=== PATIENT | female | born 1985 | race American Indian/Alaskan Native ===

== ENCOUNTER 2016-04-23 12:19 | Outpatient (CLI) | payer MEDICAID ==
[2016-04-23 13:12] VITALS: BP 112/61
--- NOTE | 2016-04-24 13:11 | Ultrasound Report ---
BIOPHYSICAL PROFILE: History: well-being, no movements Technique: Transabdominal ultrasound with Doppler interrogation. 2 - breathing movements 2 - movements 2 - posture and tone 2 - Qualitative amniotic fluid volume 8 - TOTAL SCORE OF POSSIBLE 8 Heart Rate (bpm) 134
== END 2016-04-23 14:24 | disposition home or self-care (01) ==
LOC: TRG 12:19
PROVIDERS: ATTEND Obstetrics & Gynecology
DX: O47.1 False labor at or after 37 completed weeks of gestation (principal); Z3A.37 37 weeks gestation of pregnancy
CPT/HCPCS: 59025; 76815; 76819

== ENCOUNTER 2016-05-02 05:10 | Inpatient (IN) | payer MEDICAID ==
[2016-05-02] MEDS ORDERED: LACTATED RINGERS 1,000 ML ONE ×2 (05:51→07:00)
[2016-05-02] MEDS ORDERED: LACTATED RINGERS 1,000 ML IV ONE (06:15)
[2016-05-02] MEDS ORDERED: BICITRA PO ONE (06:36)
[2016-05-02] MEDS ORDERED: PEPCID IV ONE (06:38)
[2016-05-02 06:44] LABS: Hematocrit 38.7 % (30.3-42.9); Hemoglobin 12.6 gm/dl (10.1-14.3); Mean Corpuscular HGB Conc 33 % (30-34); Mean Corpuscular Hemoglobin 29 pg (28-32); Mean Corpuscular Volume 88 fl (79-97); Platelet Count 178 K/mm3 (140-440); White Blood Count 7.8 K/mm3 (4.5-11.0)
[2016-05-02] MEDS ORDERED: PITOCin/NS 20 UNIT/1000ML DRIP 20 UNITS/1,000 ML BAG IV SCH ×2 (07:00→11:00)
[2016-05-02] MEDS ORDERED: REGLAN IV NR ×2 (07:00→08:00)
[2016-05-02] MEDS ORDERED: ANCEF/STERILE WATER 2 GM/20 ML IV NR (07:00)
--- NOTE | 2016-05-02 07:40 | History and Physical Report ---
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 Per patient, course has been unremarkable. She has a history of delivery at 26 weeks via ?classical C-S due to preeclampsia with subsequent demise of the at less than 1-month-old. 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 denies: cancer, chlamydia, gonorrhea, hepatitis B, hepatitis C, HIV, syphilis Social history: single, full code. denies: smoking, alcohol abuse, prescription drug abuse, IV drug use - Obstetrical History Expected Date of Delivery: 05/09/16 Actual Gestation: 39 Week(s) 0 Day(s) : 3 Para: 1 Hx # Term Pregnancies: 0 Number of Pregnancies: 1 Number of Living Children: 0 Medications and Allergies Allergies Allergy/AdvReac Type Severity Reaction Status Date / Time No Known Allergies Allergy Verified 05/02/16 06:00 Home Medications Medication Instructions Recorded Confirmed Last Taken Type Tablet 1 tab PO DAILY 05/02/16 05/02/16 05/01/16 20:30 History Active Meds: Active Medications Cefazolin Sodium (Ancef/Sterile Water 2 Gm/20 Ml) 2 gm IV PREOP NR Stop: 05/02/16 23:59 Oxytocin/Sodium Chloride (Pitocin/Ns 20 Unit/1000ml Drip) 20 units in 1,000 mls @ 0 mls/hr IV DIRECT MICHELLE PRN Reason: As Directed Review of Systems Constitutional: no fever, no sweats Cardiovascular: no chest pain, no orthopnea, no syncope, no lightheadedness, no shortness of breath, no dyspnea on exertion, no paroxysmal nocturnal dyspnea, no high blood pressure Respiratory: no cough, no shortness of breath, no dyspnea on exertion Gastrointestinal: no abdominal pain, no nausea, no vomiting Genitourinary: no vaginal bleeding, no vaginal discharge, no leakage of fluid, no pelvic pain - Vital Signs Vital signs: Vital Signs Pulse Pulse Ox 85 98 05/02/16 05:59 05/02/16 05:59 Temp Pulse Resp BP Pulse Ox 98.1 F 90 16 124/75 82 L 05/02/16 07:32 05/02/16 07:13 05/02/16 07:32 05/02/16 06:01 05/02/16 07:13 - Physical Exam Cardiovascular: Regular rate, Normal S1, Normal S2 Lungs: Positive: Clear to auscultation, Normal air movement Abdomen: Positive: normal appearance, soft. Negative: distention, tenderness, guarding, rigidity Genitourinary (Female): Positive: normal external genitalia Uterus: Positive: enlarged (EFW difficult due to body habitus). Negative: tender Extremities: Positive: normal - Obstetrical FHR: category 1 Results Result Diagrams: 05/02/16 06:00 All other labs normal. Assessment and Plan A: 31-year-old at 39 weeks presents for repeat -Cat 1 tracing Issues -Morbidly Obese -History of after 26 week delivery P: -Obtain routine labs -Has been consented -Proceed to the OR once available - Patient Problems (1) 39 weeks gestation of Current Visit: Yes Status: Acute (2) History of delivery affecting Current Visit: Yes Status: Acute (3) Morbid obesity with BMI of 50.0-59.9, adult Current Visit: Yes Status: Acute
[2016-05-02] MEDS ORDERED: LACTATED RINGERS 1,000 ML IV SCH (08:00)
[2016-05-02] MEDS ORDERED: ANCEF/STERILE WATER 2 GM/20 ML 2 GM/20 ML SYRINGE IV NR (08:00)
--- NOTE | 2016-05-02 08:00 | Anesthesia Consultation ---
Anesthesia Consult and Med Hx Date of service: 05/02/16 - Airway Anesthetic Teeth Evaluation: Good ROM Head & Neck: Adequate Mental/Hyoid Distance: Adequate Mallampati Class: Class II Intubation Access Assessment: Probably Good - Pulmonary Exam CTA: Yes - Cardiac Exam Cardiac Exam: RRR - Pre-Operative Health Status ASA Pre-Surgery Classification: ASA3 Proposed Anesthetic Plan: Epidural, Spinal - Pulmonary Hx Asthma: No COPD: No Hx Pneumonia: No - Cardiovascular System Hx Hypertension: No - Central Nervous System Hx Seizures: No Hx Psychiatric Problems: No - Endocrine Hx Renal Disease: No Hx End Stage Renal Disease: No Hx Hypothyroidism: No Hx Hyperthyroidism: No - Hematic Hx Anemia: No Hx Sickle Cell Disease: No - Other Systems Hx Alcohol Use: No Hx Obesity: Yes (morbid obesity)
--- NOTE | 2016-05-02 08:01 | Anesthesia Day of Surgery ---
Anesthesia Day of Surgery - Day of Surgery Patient Examined: Yes Patient H&P Reviewed: Yes Patient is NPO: Yes (FSP)
[2016-05-02] MEDS ORDERED: XYLOCAINE MPF 2% ONE (08:20)
[2016-05-02] MEDS ORDERED: ZOFRAN ONE (08:20)
[2016-05-02] MEDS ORDERED: ePHEDrine SULFATE ONE (08:20)
[2016-05-02] MEDS ORDERED: ANCEF ONE (08:20)
[2016-05-02] MEDS ORDERED: EMLA TP PRN (08:30)
[2016-05-02] MEDS ORDERED: NACL 0.9% 500 ML 500 ML IV ONE (08:33)
[2016-05-02] MEDS ORDERED: NACL 0.9% IR ONE (09:20)
[2016-05-02] MEDS ORDERED: WATER FOR IRRIG STERILE IR ONE (09:20)
--- NOTE | 2016-05-02 10:35 | Operative Report ---
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 14 oz. or 3564 grams, Apgars 7 and 9, morbidly obese with significant subcutaneous fat, gulf ball sized fibroid noted at the left hysterotomy incision, adhesions of omentum to anterior abdominal wall and uterus otherwise normal uterus tubes and ovaries bilaterally DESCRIPTION OF PROCEDURE: She was taken to the operating room where she was prepped and draped in a sterile fashion, she was placed in the dorsal supine position. Pfannenstiel incision was performed through her prior incisional scar which was carried through to underlying rectus fascia which was on the midline. The fascial incision was extended laterally with use of Iqbal scissors, the anterior leaf was then grasped with Kochers forceps elevated dissected sharply and bluntly off the underlying rectus in a similar fashion inferior leaf was grasped elevated dissected sharply and bluntly off the underlying rectus. The rectus was in the midline, with significant omental adhesions noted. Adhesiolysis was then performed until good visualization of uterus and bladder was noted. A bladder blade was placed in the patient's pelvic cavity; bladder flap could not be created. A hysterotomy incision was then performed in the lower segment with clear amniotic fluid noted, hysterotomy incision was extended laterally with the use of fingers manually. in cephalic presentation was delivered in the usual manner; cord was clamped and cut infant was handed over to waiting nursery staff. The placenta was then delivered manually intact, the uterus was exteriorized cleared of all clots and debris. We then noticed the large golf ball size fibroid on the left hysterotomy. There was no way to close the incision without performing a myomectomy. Patient was informed of plan of care. The fibroid was grasped and then gently teased out of the shell with bovie used the break up adhesions. Fibroids sent to pathology. Fibroid bed was then closed with interrupted figure of 8 stitches using 0 Vicryl. Hysterotomy incision was then closed in a running locked fashion with 0 Vicryl on a CTX; using the same suture was imbricate the initial layer. Interrupted [id number] stitches were used to obtain hemostasis. Uterus was then returned to the patient's pelvic cavity; peritoneal edges were grasped with hemostats and Sangeeta's elevated copiously irrigation was used to clear the gutters of all clots and debris. Tercel hemostatic agent was then applied to the hysterotomy incision as a means to prevent future bleeding, Interceed was then applied into the pelvic cavity as a means to prevent future adhesions. The peritoneal layer was then closed in a running fashion with 3-0 Vicryl and the rectus was reapproximated with a single [id number] stitch. The fascia was closed in a running fashion with 0 Vicryl and tied in the opposite side. The subcutaneous layer was irrigated and then reapproximated with interrupted figure -of-eight stitches. The skin was closed in a subcuticular manner with 4-0 Vicryl. She tolerated the procedure well lap and instrument counts were correct 2 she did receive 3 g of Ancef prior to incision she is transferred to PACU in stable condition thank you.
[2016-05-02] MEDS ORDERED: LANSINOH TP PRN (11:00)
[2016-05-02] MEDS ORDERED: SODIUM CHLORIDE FLUSH SYRINGE 10 ML IV PRN (11:00)
[2016-05-02] MEDS ORDERED: NARCAN 0.4 MG/1 ML IV PRN (11:00)
--- NOTE | 2016-05-02 11:03 | Post Anesthesia Evaluation ---
- Post Anesthesia Evaluation Patient Participated: Yes Airway Patent: Yes Stable Respiratory Function: Yes Temp > 96.8F: Yes Pain Manageable: Yes Adequeate Hydration: Yes Anesthesia Complications: No Block Receding Appropriately: Yes
[2016-05-02] MEDS ORDERED: TUCKS PAD TP PRN (11:30)
[2016-05-02] MEDS ORDERED: TYLENOL PO PRN (11:30)
[2016-05-02] MEDS ORDERED: MYLICON PO PRN (11:30)
[2016-05-02] MEDS ORDERED: D5LR 1,000 ML IV SCH (11:30)
[2016-05-02] MEDS ORDERED: ZOFRAN IV PRN (11:30)
[2016-05-02] MEDS ORDERED: PERCOCET 5/325 PO PRN (11:30)
[2016-05-02] MEDS ORDERED: BENADRYL IV PRN (12:00)
[2016-05-02] MEDS ORDERED: TORADOL IV PRN (17:20)
[2016-05-02] MEDS: METHERGINE IM SCH (18:48)
[2016-05-02] MEDS ORDERED: METHERGINE IM SCH (19:00)
[2016-05-02] MEDS ORDERED: SENOKOT PO PRN (22:00)
[2016-05-02] MEDS ORDERED: ANUCORT-HC PR PRN (22:00)
[2016-05-02] MEDS ORDERED: MILK OF MAGNESIA PO PRN (22:00)
[2016-05-02 22:46] LABS: Hematocrit 36.1 % (30.3-42.9); Hemoglobin 11.6 gm/dl (10.1-14.3)
[2016-05-03] MEDS: METHERGINE IM SCH ×3 (03:17→19:32)
[2016-05-03] MEDS: MOTRIN PO PRN (08:20)
--- NOTE | 2016-05-03 09:24 | Progress Note ---
Assessment and Plan A: POD1 s/p LTCS Ambulating, eating and voiding well Pain well managed P: Continue routine post op care Plans for d/c tomorrow as pt tolerates Continue to ambulate as tolerated No plans for contraception at this time. 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 course has been unremarkable. She has a history of delivery at 26 weeks via ?classical C-S due to preeclampsia with subsequent demise of the infant at less than 1-month-old. Patient did not have preeclampsia with this . Patient reports: appetite normal, voiding normally, pain well controlled, ambulating normally, no flatus : doing well Objective - Vital Signs Latest vital signs: Vital Signs Temp Pulse Pulse Pulse Resp BP BP 05/03/16 05:05 99.1 F 91 H 20 106/59 05/03/16 01:32 98.7 F 91 H 18 103/51 05/02/16 21:50 98.7 F 86 18 107/60 05/02/16 16:20 98.3 F 84 20 100/60 05/02/16 12:20 97.5 F L 76 20 112/61 05/02/16 11:45 97.7 F 68 14 110/57 05/02/16 11:30 70 14 97/51 05/02/16 11:15 74 13 114/56 05/02/16 11:00 79 14 113/63 05/02/16 10:55 84 12 115/55 05/02/16 10:50 98.8 F 88 14 111/60 Pulse Ox 05/03/16 05:05 05/03/16 01:32 05/02/16 21:50 05/02/16 16:20 05/02/16 12:20 05/02/16 11:45 100 05/02/16 11:30 100 05/02/16 11:15 100 05/02/16 11:00 99 05/02/16 10:55 99 05/02/16 10:50 99 Intake and Output 05/02/16 05/03/16 05/03/16 22:59 06:59 14:59 Intake Total 740 1320 Output Total 400 900 Balance 340 420 Intake: IV 500 1000 D5lr 1,000 ml @ 125 mls/ 125 hr IV DIRECT MICHELLE Rx#: [id number] PITOCin/NS 20 UNIT/1000ML 500 875 DRIP 20 units In 1,000 ml @ As Directed IV DIRECT [facility] Rx#:[id number] Oral 240 Intake, Free Water 320 Output: Urine 400 900 Indwelling Catheter 400 900 Other: Total, Intake Amount 240 Total, Output Amount 400 900 - Exam Cardiovascular: Present: Normal S1 Lungs: Present: Normal air movement Vulva: both: normal (Scant lochia) Uterus: Present: firm, fundal height below umbilicus Deep Tendon Reflex Grade: Normal +2 Incision: Present: normal, dry, intact, dressed
[2016-05-03] MEDS: PRENATAL VITAMIN PO SCH (10:45)
[2016-05-03] MEDS: FEOSOL PO SCH (10:45)
[2016-05-04] MEDS: METHERGINE IM SCH (02:20)
[2016-05-04] MEDS ORDERED: DULCOLAX PR ONE ×2 (08:00→10:46)
--- NOTE | 2016-05-04 10:27 | Progress Note ---
Assessment and Plan A: POD #2 Stable P: Follow Routine PostOp Orders Encourage increased ambulation D/C Home in the AM RTO in One Week Subjective - Subjective Date of service: 05/04/16 Principal diagnosis: POD1 Patient reports: appetite normal, voiding normally, pain well controlled, ambulating normally Martin: doing well Objective - Vital Signs Latest vital signs: Vital Signs Temp Pulse Resp BP 05/04/16 07:40 98.2 F 97 H 18 99/61 05/04/16 04:00 98.6 F 76 22 138/69 05/03/16 16:49 98.3 F 94 H 20 106/58 05/03/16 12:24 98.5 F 80 16 102/52 Intake and Output 05/03/16 05/04/16 05/04/16 22:59 06:59 14:59 Intake Total 600 700 Balance 600 700 Intake: Oral 600 300 Intake, Free Water 400 Other: Total, Intake Amount 360 300 # Voids Void 1 - Exam Breasts: Present: normal Cardiovascular: Present: Regular rate Lungs: Present: Clear to auscultation, Normal air movement Abdomen: Present: normal appearance, soft, normal bowel sounds Uterus: Present: normal, firm, fundal height below umbilicus Extremities: Present: normal Incision: Present: normal, dry, intact
--- NOTE | 2016-05-04 10:29 | Discharge Summary ---
Providers - Providers Date of Admission: 05/02/16 05:10 Date of discharge: 05/05/16 Attending physician: DHAVAL FREED MD Primary care physician: DHAVAL FREED MD Hospitalization Reason for admission: section Delivery: Procedure: repeat low transverse Episiotomy: none Laceration: none Incision: normal, dry, intact Other procedures: none complications: none Discharge diagnosis: IUP at term delivered baby: female Condition at discharge: Good Disposition: DISCHARGED TO HOME OR SELFCARE Plan - Discharge Medications Prescriptions: Ibuprofen [Motrin 600 MG tab] 600 mg PO Q8H PRN #30 tablet PRN Reason: Pain Multivitamin with Iron [Multivitamins with Iron] 1 each PO DAILY #30 tablet oxyCODONE /ACETAMINOPHEN [Percocet 5/325] 1 tab PO Q6HR PRN #30 tablet PRN Reason: Pain - Provider Discharge Summary Activity: routine, no sex for 6 weeks, no heavy lifting 4 weeks, no strenuous exercise Diet: routine Instructions: routine Additional instructions: [] Smoking cessation referral if applicable(refer to patient education folder for contact #) [] Refer to [facility]'s [facility] Booklet Call your doctor immediately for: * Fever > 100.5 * Heavy vaginal bleeding ( >1 pad per hour) * Severe persistent headache * Shortness of breath * Reddened, hot, painful area to leg or breast * Drainage or odor from incision. * Keep incision clean and dry at all times and follow doctor's instructions regarding bathing/showering - Follow up plan Follow up: MACEY RUIZ CNM [Advanced Practice Nurse] - 7 Days
[2016-05-04] MEDS: FEOSOL PO SCH (11:41)
[2016-05-04] MEDS: PRENATAL VITAMIN PO SCH (11:41)
[2016-05-04] MEDS: MOTRIN PO PRN ×2 (11:42→17:30)
[2016-05-05] MEDS: FEOSOL PO SCH (10:06)
[2016-05-05] MEDS: PRENATAL VITAMIN PO SCH (10:07)
[2016-05-05 11:04] VITALS: BP 112/70
== END 2016-05-05 12:10 | disposition home or self-care (01) | DRG 765 ==
LOC: APU 05:10 → OB 12:21
PROVIDERS: ADMIT Obstetrics & Gynecology; ATTEND Obstetrics & Gynecology
PROC: 10D00Z1 Extraction of Products of Conception, Low, Open Approach (ICD-10-PCS; principal; 2016-05-02)
PROC: 0UB90ZZ Excision of Uterus, Open Approach (ICD-10-PCS; 2016-05-02)
PROC: 0UN90ZZ Release Uterus, Open Approach (ICD-10-PCS; 2016-05-02)
DX: O34.211 Maternal care for low transverse scar from previous cesarean delivery (principal); Z68.43 Body mass index [BMI] 50.0-59.9, adult; E66.01 Morbid (severe) obesity due to excess calories; O99.214 Obesity complicating childbirth; O99.89 Other specified diseases and conditions complicating pregnancy, childbirth and the puerperium; N73.6 Female pelvic peritoneal adhesions (postinfective); Z3A.39 39 weeks gestation of pregnancy; Z87.51 Personal history of pre-term labor
CPT/HCPCS: 36415; 85014; 85018; 85027; 86850; 86900; 86901; 86920; 88305; 99211; C1765; C9250; G0463; J0690; J1200; J1885; J2210; J2405; J2590; J2765; J7120; J7121